=== PATIENT | female | born 1985 | race Caucasian/White ===

== ENCOUNTER → 2019-05-05 | Outpatient (CLI) | payer BC ==
[~2019-05-05] MED LIST: ADVAIR HFA1 AE1 IH; CLARITIN 1010 MG/TAB PO; COLACE 100100 MG/CAP PO; FOLIC ACID800 MCG PO; FOLTX 2 MG PO; IBU600 MG PO; MOTRIN 600600 MG/TAB PO; PERCOCET 325 MG1 TA2 PO; PRENATAL FORMU1 EAC3 PO; PRENATAL1 TA2 PO; PROAIR HFA0.09 MG/AC IH; RT ADVAIR HFA 412 GM IH; SLOW FE45 MG PO; TOBRAMYCIN AND2.5 ML OP
== END ==
LOC: COL.VAS 11:44
DX: H54.62 Unqualified visual loss, left eye, normal vision right eye (principal); H53.8 Other visual disturbances
CPT/HCPCS: A9585

== ENCOUNTER → 2020-05-17 | Outpatient (CLI) | payer BC | LOC: COL.RAD 05-10 09:00 | DX: K21.9 Gastro-esophageal reflux disease without esophagitis (principal) ==

== ENCOUNTER 2022-04-28 15:56 | Outpatient (RCR) | payer BC | END 2022-04-30 09:21 | disposition home or self-care (01) | LOC: MKS.ESL.PT 15:56 | DX: M51.36 Other intervertebral disc degeneration, lumbar region (principal) ==

== ENCOUNTER → 2022-09-12 | Outpatient (CLI) | payer BC | LOC: COL.RAD 06:47 | DX: K76.9 Liver disease, unspecified (principal); M47.816 Spondylosis without myelopathy or radiculopathy, lumbar region; R14.0 Abdominal distension (gaseous) | CPT/HCPCS: Q9967 ==

== ENCOUNTER → 2024-01-20 | Outpatient (CLI) | payer OTHER | LOC: COL.RAD 07:17 | DX: R10.84 Generalized abdominal pain (principal); R19.7 Diarrhea, unspecified; R19.4 Change in bowel habit ==

== ENCOUNTER 2024-04-05 10:31 | Day surgery (SDC) | payer BC, OTHER ==
[2024-04-05] MEDS ORDERED: Lidocaine PF 2% (20 MG/ML) 5 ML VIAL ONE (11:41)
[2024-04-05] MEDS ORDERED: fentaNYL 50 MCG/ML 5 ML VIAL ONE (11:41)
[2024-04-05] MEDS ORDERED: Rocuronium 50 MG/5 ML Multi-Dose VIAL ONE (11:41)
[2024-04-05] MEDS ORDERED: Ondansetron 4 MG/2 ML VIAL ONE (12:37)
[2024-04-05] MEDS ORDERED: dexAMETHasone 10 MG/ML VIAL ONE (12:37)
[2024-04-05] MEDS ORDERED: ePHEDrine 50 MG/ML VIAL ONE (13:01)
== END 2024-04-05 16:55 | disposition home or self-care (01) ==
LOC: SDCO 10:31
DX: K81.1 Chronic cholecystitis (principal); K82.8 Other specified diseases of gallbladder
CPT/HCPCS: J0690; J1100; J2405; J2704; J3010